=== PATIENT | female | born 1985 | race Caucasian/White ===

== ENCOUNTER 2016-09-07 12:01 | Emergency (ER) | payer SELFPAY ==
[~2016-09-07] VITALS: Ht 165.1 cm; Wt 58.7 kg
[2016-09-07 12:08] VITALS: BP 129/92; PULSE 110; RESP 16; TEMP 98.3; O2SAT 98
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
[2016-09-07] MEDS ORDERED: traMADol HCL 50 MG TAB PO ONE (12:45)
[2016-09-07 13:35] VITALS: BP 123/74; PULSE 93; RESP 16; O2SAT 100
--- NOTE | 2016-09-07 14:01 | RADHPO ---
EXAM DATE/TIME: 09/07/2016 13:34 [facility] COMPARISON: No previous studies available for comparison. INDICATIONS : Left arm pain and swelling following IV drug abuse 1 week ago. MEDICAL HISTORY : IV drug abuse. Left arm pain. ETOH use. SURGICAL HISTORY : Abdominal surgery. ENCOUNTER: Initial ACUITY: 1 week PAIN SCORE: 10/10 LOCATION: Left arm. FINDINGS: There is spontaneous flow documented in the brachial, basilic, cephalic, axillary, and subclavian vei ns. The vessels are compressible and augmentation response is documented. No filling defects are se en. The flow is phasic with respiration. Direction of flow in the jugular vein is caudal. There is a complex, 2.1 x 2.2 x 1.7 cm predominantly cystic area in the antecubital fossa where the p atient reports recent area of IV drug injection. CONCLUSION: 1. No DVT. 2. A 2.2 cm complex but predominantly cystic area in the antecubital fossa where the patient reports recent drug injection. Depending on clinical symptomatology, findings could represent residual inject ed fluid or abscess. Anthony Reyes MD on September 07, 2016 at 13:56 Board Certified Radiologist. This report was verified electronically.
[2016-09-07] MEDS ORDERED: CEPH-459 PO (14:09)
[2016-09-07] MEDS ORDERED: IBUP800T23 PO (14:09)
[2016-09-07] MEDS ORDERED: BACT800T5 PO (14:09)
[2016-09-07] MEDS ORDERED: LIDOCAINE 1%/EPINEPHrine 1:100,000 SOLN 20 ML VIAL INFIL ONE (14:15)
== END 2016-09-07 14:46 | disposition home or self-care (01) ==
LOC: PHEFT 12:01
DX: L02.414 Cutaneous abscess of left upper limb (principal); J34.0 Abscess, furuncle and carbuncle of nose; B95.62 Methicillin resistant Staphylococcus aureus infection as the cause of diseases classified elsewhere; F17.210 Nicotine dependence, cigarettes, uncomplicated; F15.10 Other stimulant abuse, uncomplicated
CPT/HCPCS: 10061; 86403; 87070; 87186; 93971

== ENCOUNTER 2016-09-10 11:36 | Emergency (ER) | payer SELFPAY ==
[~2016-09-10] VITALS: Ht 165.1 cm; Wt 59.1 kg
[~2016-09-10 11:36] MED LIST: BACT800T5 PO; CEPH-459 PO; IBUP800T23 PO
[2016-09-10 11:58] VITALS: BP 130/89; PULSE 99; RESP 16; TEMP 98.2; O2SAT 99
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
== END 2016-09-10 13:05 | disposition home or self-care (01) ==
LOC: PHEFT 11:36
DX: Z09 Encounter for follow-up examination after completed treatment for conditions other than malignant neoplasm (principal)
CPT/HCPCS: 99281

== ENCOUNTER 2016-11-18 03:38 | Emergency (ER) | payer SELFPAY ==
[~2016-11-18] VITALS: Ht 165.1 cm; Wt 57.5 kg
[2016-11-18 03:44] VITALS: BP 117/81; PULSE 104; RESP 16; TEMP 98.1; O2SAT 100
[2016-11-18] MEDS ORDERED: SULFAMETHOXAZOLE-TRIMETHOPRIM DS 800-160 MG TAB PO ONE (04:15)
[2016-11-18] MEDS ORDERED: SODIUM CHLOR 0.9% 1000 ML INJ 1,000 ML IV ONE (04:15)
[2016-11-18] MEDS ORDERED: KETOROLAC TROMETHAMINE 30 MG/ML (IVP) VIAL IVP ONE (04:15)
[2016-11-18] MEDS ORDERED: CLINDAMYCIN INJ 900 MG in SODIUM CHLORIDE 0.9% INJ 100 ML IV ONE (04:15)
[2016-11-18] MEDS ORDERED: BACT800T5 PO (04:57)
[2016-11-18] MEDS ORDERED: CLIN1CAP5 PO (04:57)
[2016-11-18] MEDS ORDERED: IBUP-232 PO (04:57)
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
[2016-11-18 05:37] VITALS: BP 122/78
== END 2016-11-18 05:39 | disposition home or self-care (01) ==
LOC: PHED 03:38
DX: L03.114 Cellulitis of left upper limb (principal); L02.414 Cutaneous abscess of left upper limb; B95.8 Unspecified staphylococcus as the cause of diseases classified elsewhere
CPT/HCPCS: 84703; 86403; 87040; 87077; 87186; 87205; 96365; 96375; 99284; J1885; J7030

== ENCOUNTER 2016-11-18 22:15 | Emergency (ER) | payer SELFPAY ==
[~2016-11-18] VITALS: Ht 165.1 cm; Wt 59.4 kg
[~2016-11-18 22:15] MED LIST changes: +CLIN1CAP5 PO; +IBUP-232 PO
[2016-11-18 22:17] VITALS: BP 129/93; PULSE 114; RESP 20; TEMP 98.1; O2SAT 100
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
[2016-11-18] MEDS ORDERED: CLINDAMYCIN 150 MG CAP PO ONE (23:15)
[2016-11-18] MEDS ORDERED: SULFAMETHOXAZOLE-TRIMETHOPRIM DS 800-160 MG TAB PO ONE (23:15)
== END 2016-11-18 23:17 | disposition home or self-care (01) ==
LOC: PHED 22:15
DX: L02.414 Cutaneous abscess of left upper limb (principal); L03.114 Cellulitis of left upper limb; B95.62 Methicillin resistant Staphylococcus aureus infection as the cause of diseases classified elsewhere
CPT/HCPCS: 10060; 86403; 87070; 87186; 87205

== ENCOUNTER 2016-11-20 23:05 | Emergency (ER) | payer SELFPAY ==
[~2016-11-20] VITALS: Ht 165.1 cm; Wt 57.4 kg
[2016-11-20 23:13] VITALS: BP 111/80; PULSE 128; RESP 18; TEMP 98.3; O2SAT 100
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
[2016-11-20] MEDS ORDERED: SULFAMETHOXAZOLE-TRIMETHOPRIM DS 800-160 MG TAB PO ONE (23:30)
[2016-11-20] MEDS ORDERED: CLINDAMYCIN INJ 900 MG in SODIUM CHLORIDE 0.9% INJ 100 ML IV ONE (23:30)
== END 2016-11-21 00:44 | disposition home or self-care (01) ==
LOC: PHED 23:05
DX: L02.414 Cutaneous abscess of left upper limb (principal)
CPT/HCPCS: 96365

== ENCOUNTER 2016-11-24 20:01 | Emergency (ER) | payer SELFPAY ==
[~2016-11-24] VITALS: Ht 165.1 cm; Wt 57.3 kg
[2016-11-24 20:02] VITALS: BP 128/95; PULSE 117; RESP 18; TEMP 98.5; O2SAT 98
[2016-11-24] MEDS ORDERED: BACT800T5 PO (20:17)
--- NOTE | 2016-11-24 20:34 | PD ---
HPI Chief Complaint: Abnormal Results Time Seen by Provider: 20:17 Travel History International Travel<30 days: No Contact w/Intl Traveler<30days: No Traveled to known affect area: No History of Present Illness HPI Is a 31-year-old woman who presents to the emergency department after she was called back for positive blood cultures. Patient has a history of IV drug use. She's had abscesses before. She was seen on June 20, about 6 days ago, with a phlegmon of the left arm. Soft tissue ultrasound did not show drainable collection. She returned about a day or so later and had the abscess drained with copious pus. Wound culture grew MRSA. Blood cultures obtained on her index visit ended up growing stap on the when her cultures initially grew coag negative staph. She was seen in the emergency department at this point and was feeling much improved. No systemic symptoms. Her cultures ended up speciating as staph capitis-ureolyticus. She was apparently instructed to come back to the emergency department again. She denies any fevers chills night sweats or other symptoms. Her abscess is almost completely resolved. She's full range of motion. She has no tenderness. She still some palpable induration. She has not used IV drugs since then. She states she's got palpitations on and off for a while. She has filled the fatigued but no real shortness of breath. History Past Medical History Narrative Medical IV drug use Tetanus Vaccination: < 5 Years Influenza Vaccination: No LMP: 10-25-16 : 1 Para: 1 Social History Alcohol Use: Yes (RARE) Tobacco Use: Yes (1 PPD) Allergies-Medications (Allergen,Severity, Reaction): Coded Allergies: Bee Sting (Verified Allergy, Severe, RASH, TREMORS, 11/24/16) Latex (Verified Allergy, Severe, 11/24/16) [place] (Verified Allergy, Severe, "I ALMOST ", 11/24/16) Lortab (Verified Allergy, Intermediate, skin rash, 11/24/16) *MDRO Multi-Drug Resistant Organism (Verified Adverse Reaction, Unknown, ) MRSA (arm abscess) - 09/07/16, 10/2016 Uncoded Allergies: LATEX CONDOMS (Allergy, Mild, RASH, 09/07/16) . Reported Meds & Prescriptions Reported Meds & Active Scripts Active Reported Bactrim DS (Sulfamethoxazole-Trimethoprim) 800-160 Mg Tab 1 Tab PO BID Review of Systems Except as stated in HPI: all other systems reviewed are Neg Physical Exam Narrative GENERAL: Well-appearing 31-year-old woman, no acute distress. SKIN: Focused skin assessment warm/dry. Induration and scarring on the left before meals fossa. NECK: Trachea midline. No JVD. CARDIOVASCULAR: Heart rate a bit fast. No appreciable murmurs. RESPIRATORY: No accessory muscle use. Clear to auscultation. Breath sounds equal bilaterally. GASTROINTESTINAL: Abdomen soft, non-tender, nondistended. Hepatic and splenic margins not palpable. MUSCULOSKELETAL: No obvious deformities. Data Data Last Documented VS Vital Signs Date Time Temp Pulse Resp B/P Pulse Ox O2 Delivery O2 Flow Rate FiO2 11/24/16 20:17 Room Air 11/24/16 20:02 98.5 117 18 128/95 98 Orders Blood Culture (11/24/16 20:17) MDM Medical Decision Making Medical Screen Exam Complete: Yes Emergency Medical Condition: Yes Differential Diagnosis Contamination, transient bacteremia with abscess, osteomyelitis/endocarditis/ occult bacteremia Narrative Course Medical decision-making 31-year-old woman who presents to the emergency department called back for positive blood cultures. She had an abscess and cellulitis at the time there were drawn. She looks well. She is no murmur. She has no systemic symptoms. She does have a little bit of resting elevated heart rate. Given the elevated heart rate, we'll obtain 2 blood cultures with chin to sterile technique. Return if positive for further evaluation. Diagnosis Primary Impression: Positive blood cultures Additional Instructions: Return to the emergency department for any fevers, chills, night sweats, or any other new or worsening symptoms. Disposition: 01 DISCHARGE HOME Condition: Stable Toro Ohara MD Nov 24, 2016 20:34
[2016-11-24 20:49] VITALS: BP 114/81
== END 2016-11-24 20:50 | disposition home or self-care (01) ==
LOC: PHED 20:01
DX: R78.81 Bacteremia (principal); L02.414 Cutaneous abscess of left upper limb; A49.02 Methicillin resistant Staphylococcus aureus infection, unspecified site
CPT/HCPCS: 87040; 99283

== ENCOUNTER 2016-11-26 02:22 | Emergency (ER) | payer SELFPAY ==
[~2016-11-26] VITALS: Ht 165.1 cm; Wt 58.1 kg
[~2016-11-26 02:22] MED LIST changes: -CEPH-459 PO; -CLIN1CAP5 PO; -IBUP-232 PO; -IBUP800T23 PO
[2016-11-26 02:29] VITALS: BP 113/68; PULSE 138; RESP 20; TEMP 97.7; O2SAT 97
[2016-11-26] MEDS ORDERED: SODIUM CHLOR 0.9% 1000 ML INJ 1,000 ML IV ONE (03:15)
[2016-11-26 03:29] LABS: BLOOD, URINE LARGE (NEG); GLUCOSE,URINE NEG (NEG); KETONE, URINE NEG (NEG)
[2016-11-26 03:36] LABS: NITRITE,URINE POS (NEG); URINE COLOR YELLOW (YELLW/STRAW)
[2016-11-26 03:37] LABS: BACTERIA, URINE MANY /hpf; COMMENT (UR) CULTURE INDICATED; CULTURE IF INDICATED CULTURE INDICATED; WBC, URINE 100-200 /hpf (0-5)
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
[2016-11-26 03:45] LABS: AMPHETAMINE, URINE POS (NEG); BARBITURATES, URINE NEG (NEG); COCAINE, URINE NEG (NEG)
== END 2016-11-26 03:29 | disposition left against medical advice (07) ==
LOC: PHED 02:22
DX: S00.33XA Contusion of nose, initial encounter (principal); S19.9XXA Unspecified injury of neck, initial encounter; T76.11XA Adult physical abuse, suspected, initial encounter; Y04.2XXA Assault by strike against or bumped into by another person, initial encounter; Y07.03 Male partner, perpetrator of maltreatment and neglect; N39.0 Urinary tract infection, site not specified; B96.20 Unspecified Escherichia coli [E. coli] as the cause of diseases classified elsewhere
CPT/HCPCS: 80307; 81001; 87077; 87086; 87186; 99283

== ENCOUNTER 2017-02-01 01:00 | Emergency (ER) | payer OTHER ==
[~2017-02-01] VITALS: Ht 165.1 cm; Wt 60.0 kg
[2017-02-01 01:05] VITALS: BP 130/94; PULSE 122; RESP 18; TEMP 99; O2SAT 99
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
[2017-02-01 01:33] LABS: BASOPHIL # 0.1 TH/MM3 (0-0.2); BASOPHIL % 0.7 % (0.0-2.0); EOSINOPHIL # 0.2 TH/MM3 (0-0.4); EOSINOPHIL % 2.1 % (0.0-4.0); LYMPH % 49.4 % (9.0-44.0); LYMPHOCYTE # 5.7 TH/MM3 (1.0-4.8); MEAN CELL VOLUME 91.1 FL (80.0-100.0); MEAN CORPUSCULAR HEMOGLOBIN 31.1 PG (27.0-34.0); MEAN CORPUSCULAR HGB CONC 34.2 % (32.0-36.0); MONO % 4.1 % (0.0-8.0); NEUT % 43.7 % (16.0-70.0); PLATELET COUNT 297 TH/MM3 (150-450); RED BLOOD COUNT 4.61 MIL/MM3 (4.00-5.30); RED CELL DISTRIBUTION WIDTH 14.5 % (11.6-17.2); WHITE BLOOD COUNT 11.5 TH/MM3 (4.0-11.0)
[2017-02-01 01:37] LABS: HEMO FLAGS AUTO DIFF
[2017-02-01 01:53] LABS: ALKALINE PHOSPHATASE 70 U/L (45-117); TOTAL BILIRUBIN ADULT 0.2 MG/DL (0.2-1.0)
[2017-02-01 01:57] LABS: ALT (GPT) 86 U/L (10-53); ANION GAP 11 MEQ/L (5-15); AST (GOT) 52 U/L (15-37); BICARBONATE 18.7 MEQ/L (21.0-32.0); BLOOD UREA NITROGEN 15 MG/DL (7-18); CHLORIDE 110 MEQ/L (98-107); GLOMERULAR FILTRATION RATE 103 ML/MIN (>89); SODIUM (NA) 140 MEQ/L (136-145)
[2017-02-01 02:10] LABS: ACETAMINOPHEN LESS THAN 2.0 MCG/ML (10.0-30.0); ALCOHOL 244 MG/DL (0-5); POTASSIUM 4.1 MEQ/L (3.5-5.1)
[2017-02-01 02:32] LABS: EOSINOPHILS 1 % (0-4); NEUTROPHIL # MANUAL DIFF 6.2 TH/MM3 (1.8-7.7); PLATELET ESTIMATE SMEAR NORMAL (NORMAL); PLATELET MORPHOLOGY NORMAL (NORMAL); POLYS (SEG NEUTROPHILS) 54 % (16-70); WBC DIFF SAMPLE 100
[2017-02-01 02:33] LABS: SCAN/DIFF FINAL DIFF MANUAL
[2017-02-01 06:03] VITALS: BP 112/65; PULSE 90; RESP 12; O2SAT 100
--- NOTE | 2017-02-01 10:48 | PD ---
Physical Exam Date Seen by Provider: Feb 01, 2017 Time Seen by Provider: 10:44 Narrative 31 year old female has been in the emergency department overnight under Gomez Act. Patient was seen by the psychiatrist, Dr. Muñoz, this morning and her Gomez Act has been lifted. She denies any suicidal or homicidal ideation to me. Patient has no complaints and would like to be discharged home. Data Data Last Documented VS Vital Signs Date Time Temp Pulse Resp B/P (MAP) Pulse Ox O2 Delivery O2 Flow Rate FiO2 02/01/17 06:03 90 12 112/65 (81) 100 Room Air 02/01/17 01:05 99.0 Orders Orders Complete Blood Count With Diff (02/01/17 01:08) Comprehensive Metabolic Panel (02/01/17 01:08) Ed Urine Pregnancytest Poc (02/01/17 01:08) Psych Screen (02/01/17 01:08) Drug Screen, Random Urine (02/01/17 01:08) Alcohol (Ethanol) (02/01/17 01:08) Salicylates (Aspirin) (02/01/17 01:08) Tylenol (Acetaminophen) (02/01/17 01:08) [place] (Li) (02/01/17 01:09) Diet Regular Basic (02/01/17 Breakfast) Labs Laboratory Tests Test 02/01/17 01:20 White Blood Count 11.5 TH/MM3 Red Blood Count 4.61 MIL/MM3 Hemoglobin 14.3 GM/DL Hematocrit 42.0 % Mean Corpuscular Volume 91.1 FL Mean Corpuscular Hemoglobin 31.1 PG Mean Corpuscular Hemoglobin Concent 34.2 % Red Cell Distribution Width 14.5 % Platelet Count 297 TH/MM3 Mean Platelet Volume 7.7 FL Neutrophils (%) (Auto) 43.7 % Lymphocytes (%) (Auto) 49.4 % Monocytes (%) (Auto) 4.1 % Eosinophils (%) (Auto) 2.1 % Basophils (%) (Auto) 0.7 % Neutrophils # (Auto) 5.0 TH/MM3 Lymphocytes # (Auto) 5.7 TH/MM3 Monocytes # (Auto) 0.5 TH/MM3 Eosinophils # (Auto) 0.2 TH/MM3 Basophils # (Auto) 0.1 TH/MM3 CBC Comment AUTO DIFF Differential Total Cells Counted 100 Neutrophils % (Manual) 54 % Lymphocytes % 45 % Eosinophils % 1 % Neutrophils # (Manual) 6.2 TH/MM3 Differential Comment FINAL DIFF MANUAL Atypical Lymphocytes % Platelet Estimate NORMAL Platelet Morphology Comment NORMAL Red Cell Morphology Comment NORMAL Blood Urea Nitrogen 15 MG/DL Creatinine 0.67 MG/DL Random Glucose 89 MG/DL Total Protein 8.3 GM/DL Albumin 3.7 GM/DL Calcium Level 8.7 MG/DL Alkaline Phosphatase 70 U/L Aspartate Amino Transf (AST/SGOT) 52 U/L Alanine Aminotransferase (ALT/SGPT) 86 U/L Total Bilirubin 0.2 MG/DL Sodium Level 140 MEQ/L Potassium Level 4.1 MEQ/L Chloride Level 110 MEQ/L Carbon Dioxide Level 18.7 MEQ/L Anion Gap 11 MEQ/L Estimat Glomerular Filtration Rate 103 ML/MIN Salicylates Level 3.7 MG/DL Urine Opiates Screen NEG Acetaminophen Level LESS THAN 2.0 MCG/ML Urine Barbiturates Screen NEG Urine Amphetamines Screen NEG Urine Benzodiazepines Screen NEG [place] Level LESS THAN 0.1 MEQ/L Urine Cocaine Screen NEG Urine Cannabinoids Screen NEG Ethyl Alcohol Level 244 MG/DL MDM Supervised Visit with KAYLEN: No Diagnosis Primary Impression: Medical clearance for psychiatric admission Additional Impression: Alcohol-induced mood disorder Referrals: Primary Care Physician call for appointment Patient Instructions: General Instructions, Mood Disorders (ED) Additional Instruction: Follow up with your primary care physician. Return to the emergency department for any acute, worsening of symptoms. Med/Other Pt SpecificInfo: No Change to Meds Disposition: 01 DISCHARGE HOME Condition: Stable Taryn Wild LEAH Feb 01, 2017 10:48
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
== END 2017-02-01 10:55 | disposition home or self-care (01) ==
LOC: NEPD 01:00
DX: F10.94 Alcohol use, unspecified with alcohol-induced mood disorder (principal); F43.25 Adjustment disorder with mixed disturbance of emotions and conduct; Z72.0 Tobacco use
CPT/HCPCS: 80053; 80178; 80307; 84703; 85007; 85027; 99283

== ENCOUNTER 2017-04-04 20:53 | Emergency (ER) | payer OTHER ==
[~2017-04-04] VITALS: Ht 162.6 cm; Wt 65.0 kg
[2017-04-04 21:02] VITALS: BP 121/94; PULSE 122; RESP 18; TEMP 98.5; O2SAT 98
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
[2017-04-04 21:20] VITALS: PULSE 98; RESP 15; O2SAT 99
[2017-04-04 21:41] LABS: AUTOMATED NEUTROPHIL # 2.9 TH/MM3 (1.8-7.7); BASOPHIL % 0.4 % (0.0-2.0); EOSINOPHIL # 0.2 TH/MM3 (0-0.4); EOSINOPHIL % 1.8 % (0.0-4.0); HEMATOCRIT 44.5 % (35.0-46.0); LYMPH % 59.9 % (9.0-44.0); LYMPHOCYTE # 5.4 TH/MM3 (1.0-4.8); MEAN CORPUSCULAR HEMOGLOBIN 31.9 PG (27.0-34.0); MEAN CORPUSCULAR HGB CONC 34.7 % (32.0-36.0); MONO % 6.2 % (0.0-8.0); NEUT % 31.7 % (16.0-70.0); PLATELET COUNT 325 TH/MM3 (150-450); RED BLOOD COUNT 4.84 MIL/MM3 (4.00-5.30); RED CELL DISTRIBUTION WIDTH 13.7 % (11.6-17.2)
[2017-04-04 21:44] LABS: HEMO FLAGS AUTO DIFF
[2017-04-04 21:54] LABS: BACTERIA, URINE FEW /hpf; BLOOD, URINE NEG (NEG); GLUCOSE,URINE NEG (NEG); KETONE, URINE NEG (NEG); MUCUS URINE FEW /lpf (OCC); NITRITE,URINE NEG (NEG); PH, URINE 5.5 (5.0-8.5); SQUAMOUS EPITHELIAL CELL URINE 2 /hpf (0-5); URINE COLOR YELLOW (YELLW/STRAW)
[2017-04-04 21:56] LABS: COMMENT (UR) CULTURE INDICATED; CULTURE IF INDICATED CULTURE INDICATED
[2017-04-04] MEDS ORDERED: LORazepam 2 MG/ML VIAL IM ONE (22:00)
[2017-04-04] MEDS ORDERED: BACT800T5 PO (22:07)
[2017-04-04 22:09] LABS: ALKALINE PHOSPHATASE 75 U/L (45-117); ALT (GPT) 194 U/L (10-53); ANION GAP 6 MEQ/L (5-15); AST (GOT) 102 U/L (15-37); BICARBONATE 28.1 MEQ/L (21.0-32.0); BLOOD UREA NITROGEN 11 MG/DL (7-18); CHLORIDE 107 MEQ/L (98-107); GLOMERULAR FILTRATION RATE 64 ML/MIN (>89); SODIUM (NA) 141 MEQ/L (136-145); TOTAL BILIRUBIN ADULT 0.3 MG/DL (0.2-1.0)
[2017-04-04 22:11] LABS: ACETAMINOPHEN LESS THAN 2.0 MCG/ML (10.0-30.0); ALCOHOL 307 MG/DL (0-5); POTASSIUM 4.1 MEQ/L (3.5-5.1)
[2017-04-04 22:14] LABS: BANDS 1 % (0-6); EOSINOPHILS 3 % (0-4); NEUTROPHIL # MANUAL DIFF 1.9 TH/MM3 (1.8-7.7); PLATELET ESTIMATE SMEAR NORMAL (NORMAL); POLYS (SEG NEUTROPHILS) 20 % (16-70); SCAN/DIFF FINAL DIFF MANUAL; WBC DIFF SAMPLE 100
[2017-04-04 22:15] LABS: PLATELET MORPHOLOGY NORMAL (NORMAL)
[2017-04-04] MEDS ORDERED: SULFAMETHOXAZOLE-TRIMETHOPRIM DS 800-160 MG TAB PO ONE (22:15)
[2017-04-04] MEDS ORDERED: LORazepam 1 MG TAB PO PRN (22:30)
[2017-04-04] MEDS ORDERED: LORazepam 2 MG TAB PO PRN (22:30)
[2017-04-04] MEDS ORDERED: FLUMAZENIL 0.5 MG/5 ML VIAL IV PUSH PRN (22:30)
[2017-04-04] MEDS ORDERED: LORazepam 2 MG/ML VIAL IV PUSH PRN ×4 (22:30)
[2017-04-05] MEDS ORDERED: ZIPRASIDONE MESYLATE 20 MG VIAL IM ONE (01:15)
[2017-04-05 08:10] VITALS: BP 100/62; PULSE 104; RESP 18; O2SAT 95
--- NOTE | 2017-04-05 14:04 | PD ---
Physical Exam Date Seen by Provider: Apr 05, 2017 Time Seen by Provider: 14:01 Narrative For full history and physical examination please see previous provider's notes. Data Data Last Documented VS Vital Signs Date Time Temp Pulse Resp B/P (MAP) Pulse Ox O2 Delivery O2 Flow Rate FiO2 04/05/17 08:10 104 18 100/62 (75) 95 Room Air 04/04/17 21:02 98.5 Orders Orders Complete Blood Count With Diff (04/04/17 21:09) Comprehensive Metabolic Panel (04/04/17 21:09) Urinalysis - C+S If Indicated (04/04/17 21:09) Ed Urine Pregnancytest Poc (04/04/17 21:09) Psych Screen (04/04/17 21:09) Drug Screen, Random Urine (04/04/17 21:09) Alcohol (Ethanol) (04/04/17 21:09) Salicylates (Aspirin) (04/04/17 21:09) Tylenol (Acetaminophen) (04/04/17 21:09) Wound Care (04/04/17 21:14) Urine Culture (04/04/17 21:28) Lorazepam Inj (Ativan Inj) (04/04/17 22:00) Sulfamet-Trimeth Ds 800-160 Mg (Bactrim (04/04/17 22:15) Alcohol Withdrawal Asmt-Ciwa ONCE (04/04/17 22:21) Flumazenil Inj (Romazicon Inj) (04/04/17 22:30) Lorazepam (Ativan) (04/04/17 22:30) Lorazepam Inj (Ativan Inj) (04/04/17 22:30) Lorazepam (Ativan) (04/04/17 22:30) Lorazepam Inj (Ativan Inj) (04/04/17 22:30) Lorazepam Inj (Ativan Inj) (04/04/17 22:30) Lorazepam Inj (Ativan Inj) (04/04/17 22:30) Restraints Violent (04/05/17 01:03) Ziprasidone Inj (Geodon Inj) (04/05/17 01:15) Diet Regular Basic (04/05/17 Breakfast) Diet Regular Basic (04/05/17 Lunch) Ed Discharge Order (04/05/17 14:01) Labs Laboratory Tests Test 04/04/17 21:21 04/04/17 21:28 White Blood Count 9.0 TH/MM3 Red Blood Count 4.84 MIL/MM3 Hemoglobin 15.4 GM/DL Hematocrit 44.5 % Mean Corpuscular Volume 92.0 FL Mean Corpuscular Hemoglobin 31.9 PG Mean Corpuscular Hemoglobin Concent 34.7 % Red Cell Distribution Width 13.7 % Platelet Count 325 TH/MM3 Mean Platelet Volume 7.1 FL Neutrophils (%) (Auto) 31.7 % Lymphocytes (%) (Auto) 59.9 % Monocytes (%) (Auto) 6.2 % Eosinophils (%) (Auto) 1.8 % Basophils (%) (Auto) 0.4 % Neutrophils # (Auto) 2.9 TH/MM3 Lymphocytes # (Auto) 5.4 TH/MM3 Monocytes # (Auto) 0.6 TH/MM3 Eosinophils # (Auto) 0.2 TH/MM3 Basophils # (Auto) 0.0 TH/MM3 CBC Comment AUTO DIFF Differential Total Cells Counted 100 Neutrophils % (Manual) 20 % Band Neutrophils % 1 % Lymphocytes % 72 % Monocytes % 4 % Eosinophils % 3 % Neutrophils # (Manual) 1.9 TH/MM3 Differential Comment FINAL DIFF MANUAL Platelet Estimate NORMAL Platelet Morphology Comment NORMAL Blood Urea Nitrogen 11 MG/DL Creatinine 1.01 MG/DL Random Glucose 96 MG/DL Total Protein 8.1 GM/DL Albumin 3.9 GM/DL Calcium Level 8.9 MG/DL Alkaline Phosphatase 75 U/L Aspartate Amino Transf (AST/SGOT) 102 U/L Alanine Aminotransferase (ALT/SGPT) 194 U/L Total Bilirubin 0.3 MG/DL Sodium Level 141 MEQ/L Potassium Level 4.1 MEQ/L Chloride Level 107 MEQ/L Carbon Dioxide Level 28.1 MEQ/L Anion Gap 6 MEQ/L Estimat Glomerular Filtration Rate 64 ML/MIN Salicylates Level 3.7 MG/DL Acetaminophen Level LESS THAN 2.0 MCG/ML Ethyl Alcohol Level 307 MG/DL Urine Color YELLOW Urine Turbidity HAZY Urine pH 5.5 Urine Specific [place] 1.012 Urine Protein NEG mg/dL Urine Glucose (UA) NEG mg/dL Urine Ketones NEG mg/dL Urine Occult Blood NEG Urine Nitrite NEG Urine Bilirubin NEG Urine Urobilinogen LESS THAN 2.0 MG/DL Urine Leukocyte Esterase MOD Urine RBC 1 /hpf Urine WBC 21 /hpf Urine Squamous Epithelial Cells 2 /hpf Urine Amorphous Sediment OCC Urine Bacteria FEW /hpf Urine Mucus FEW /lpf Microscopic Urinalysis Comment CULTURE INDICATED Urine Opiates Screen NEG Urine Barbiturates Screen NEG Urine Amphetamines Screen NEG Urine Benzodiazepines Screen NEG Urine Cocaine Screen NEG Urine Cannabinoids Screen NEG MDM Medical Record Reviewed: Yes Supervised Visit with KAYLEN: No Narrative Course Patient is a 31-year-old female that presented to emergency department under a Gomez act for psychiatric evaluation. Patient was seen and evaluated in the emergency department, medically cleared. She was then seen and evaluated by the psychiatrist. Gomez act was lifting. Patient was deemed stable to discharge home. Diagnosis Primary Impression: Urinary tract infection Qualified Codes: N39.0 - Urinary tract infection, site not specified Additional Impressions: Alcohol abuse with intoxication Medical clearance for psychiatric admission Referrals: [facility] Patient Instructions: General Instructions, Urinary Tract Infection in Women ( ED) Additional Instruction: Follow[facility]up at [facility] Complete full course of antibiotics Increased fluid intake Return to emergency department for any new or worsening symptoms Med/Other Pt SpecificInfo: Prescription(s) given Scripts Sulfamethoxazole-Trimethoprim (Bactrim DS) 800-160 Mg Tab 1 TAB PO BID for Infection, #20 TAB 0 Refills Prov: Jenaro Garibay MD 04/04/17 Disposition: 01 DISCHARGE HOME Condition: Stable Sabina Piña Apr 05, 2017 14:04
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
== END 2017-04-05 16:29 | disposition home or self-care (01) ==
LOC: NEPD 20:53 → NEPJ 04-05 16:29
DX: N39.0 Urinary tract infection, site not specified (principal); B96.20 Unspecified Escherichia coli [E. coli] as the cause of diseases classified elsewhere; F17.200 Nicotine dependence, unspecified, uncomplicated; F10.129 Alcohol abuse with intoxication, unspecified; Y90.8 Blood alcohol level of 240 mg/100 ml or more
CPT/HCPCS: 80053; 80307; 81001; 85007; 85027; 87077; 87086; 87186; 96372; 96374; 96375; 96376; 99285; J2060; J3486

== ENCOUNTER 2017-11-15 16:12 | Emergency (ER) | payer OTHER ==
[~2017-11-15] VITALS: Ht 165.1 cm; Wt 68.4 kg
[2017-11-15 16:15] VITALS: BP 122/62; PULSE 100; RESP 18; TEMP 98.5; O2SAT 99
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
[2017-11-15 16:55] LABS: CALCIUM 8.9 MG/DL (8.5-10.1)
[2017-11-15 16:56] LABS: BILIRUBIN, URINE NEG (NEG); BLOOD, URINE TRACE (NEG); GLUCOSE,URINE NEG (NEG); KETONE, URINE NEG (NEG); NITRITE,URINE NEG (NEG); URINE COLOR YELLOW (YELLW/STRAW); URINE LEUKOCYTE ESTERASE NEG (NEG)
[2017-11-15 16:56] LABS: BICARBONATE 22.7 MEQ/L (21.0-32.0)
[2017-11-15 16:58] LABS: AUTOMATED NEUTROPHIL # 3.6 TH/MM3 (1.8-7.7); BASOPHIL % 0.4 % (0.0-2.0); EOSINOPHIL # 0.1 TH/MM3 (0-0.4); HEMATOCRIT 37.7 % (35.0-46.0); HEMOGLOBIN 12.9 GM/DL (11.6-15.3); LYMPH % 42.1 % (9.0-44.0); LYMPHOCYTE # 3.1 TH/MM3 (1.0-4.8); MEAN CELL VOLUME 91.1 FL (80.0-100.0); MEAN CORPUSCULAR HEMOGLOBIN 31.1 PG (27.0-34.0); MEAN CORPUSCULAR HGB CONC 34.2 % (32.0-36.0); MONO % 6.7 % (0.0-8.0); MONOCYTE # 0.5 TH/MM3 (0-0.9); NEUT % 49.8 % (16.0-70.0); PLATELET COUNT 312 TH/MM3 (150-450); RED BLOOD COUNT 4.14 MIL/MM3 (4.00-5.30); RED CELL DISTRIBUTION WIDTH 14.2 % (11.6-17.2); WHITE BLOOD COUNT 7.3 TH/MM3 (4.0-11.0)
[2017-11-15 16:59] LABS: CREATININE 0.5 MG/DL (0.50-1.00)
[2017-11-15 17:25] VITALS: BP 106/65; PULSE 78; RESP 14; O2SAT 100
[2017-11-15 17:32] LABS: SQUAMOUS EPITHELIAL CELL URINE 0-5 /hpf (0-5); WBC, URINE 0-2 /hpf (0-5)
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
[2017-11-15 18:45] VITALS: BP 104/71; PULSE 91; RESP 16; O2SAT 99
== END 2017-11-15 18:50 | disposition home or self-care (01) ==
LOC: PHED 16:12
DX: O20.9 Hemorrhage in early pregnancy, unspecified (principal); O98.411 Viral hepatitis complicating pregnancy, first trimester; B19.20 Unspecified viral hepatitis C without hepatic coma; O99.331 Smoking (tobacco) complicating pregnancy, first trimester; F17.210 Nicotine dependence, cigarettes, uncomplicated; Z3A.01 Less than 8 weeks gestation of pregnancy
CPT/HCPCS: 76700; 76817; 80048; 81001; 84702; 85025; 99284